=== PATIENT | female | born 1955 | race Caucasian/White ===

== ENCOUNTER 2023-09-22 15:31 | Emergency (ER) | payer MEDICARE, SELFPAY ==
--- NOTE | ~2023-09-22 | XR_ITS ---
EXAM: XR knee LT 3V DATE: 09/22/2023 16:11 HISTORY: left knee pain . COMPARISON: None available. FINDINGS: Decreased mineralization. No fracture or dislocation. No lytic or blastic lesion. Moderate medial joint space narrowing. Moderate tricompartmental osteophytosis. Small volume knee joint fluid . Quadriceps enthesopathy. No erosion or periosteal change. Soft tissues within normal limits. IMPRESSION: No acute osseous finding in the left knee. Reviewed, dictated and finalized at location K.
--- NOTE | 2023-09-22 15:33 | ED.LOWEXIN ---
HPI - Extremity Injury (Lower) General Chief Complaint: Extremity Injury, Lower Stated Complaint: Left Knee Pain Source: patient and RN notes reviewed Mode of arrival: ambulatory Limitations: no limitations History of Present Illness HPI Narrative: Patient is a 68-year-old female who presents to the [facility] with complaints of left knee pain. Patient states that initially she injured the knee last Friday. She states that she wrapped her leg around the table leg, causing a pull in the left knee. Patient states that initially she had some slight discomfort that worsened over the next few hours. She states that that pain continued and worsened with movement and ambulation. She states that she is able to bear weight on the toe but not on the entire foot. She also feels is stiffness in the knee that happens periodically. Patient states that she injured the knee again yesterday while walking, she felt and heard a pop in the posterior knee. She reports worsening pain since that incident. Sensation is intact and she denies numbness. She is neurovascularly intact distally. Related Data Home Medications Medication Instructions Recorded Confirmed atorvastatin 20 mg tablet 20 mg PO DAILY 09/22/23 09/22/23 Review of Systems Review of Systems: CONSTITUTIONAL: Denies fever, chills, or sweats. EYES: Denies visual changes, redness, or discharge. ENT: Denies otalgia and sore throat CARDIOVASCULAR: Denies chest pain, palpitations, or edema. RESPIRATORY: Denies cough or dyspnea. GASTROINTESTINAL: Denies abdominal pain, nausea, vomiting, or diarrhea. GENITOURINARY: Denies dysuria or hematuria. SKIN: Denies rash or itching. MUSCULOSKELETAL: Denies back pain or myalgia. Left knee pain. NEUROLOGIC: Denies headache, numbness, or weakness. Pertinent positives per HPI. PMFSH Comments At the time of my signature, I reviewed and agree with the nursing past medical, surgical, social, and family history. There is no relevant family history pertinent to the patient complaint. Exam Narrative: GENERAL: This is a well-nourished, well-developed patient, in no apparent distress. HEAD: normocephalic, atraumatic. EYES: PERRL. Sclera clear/white. Vision is grossly intact. EARS: External ears normal, auditory canals clear and without drainage, TMs normal without perforation. Hearing grossly intact. NOSE: External nose normal with no obvious nasal discharge, nares without redness, no rhinorrhea. THROAT: Mucous membranes moist, posterior pharynx clear. NECK: Neck supple, non-tender without lymphadenopathy, masses or thyromegaly. CARDIOVASCULAR: Regular rate and rhythm without murmurs, gallops, or rubs. RESPIRATORY: Clear to auscultation. Breath sounds equal bilaterally. No wheezes, rales, or rhonchi. GASTROINTESTINAL: Abdomen soft, non-tender, nondistended. Bowel sounds are active. No hepato-splenomegaly, or palpable masses. No guarding. SKIN: warm, intact with no suspicious lesions or rash, good texture and turgor. NEURO: awake, alert, and oriented to person, place and time. There were no obvious focal neurologic abnormalities. EXTREMITIES: No clubbing, cyanosis, or edema. Patient is able to bear weight but has pain. No surface of trauma or obvious effusion. No overlying erythema or warmth. The L knee is with/without obvious asymmetry or deformity when comparing to the R. Distal motor and neurovascular status intact. BACK: Nontender without deformity or crepitance. No flank tenderness. Course Course Level of Care: Express Care Visit Vital Signs Vital signs: Vital Signs Temperature 98.6 F 09/22/23 15:45 Pulse Rate 90 09/22/23 15:45 Respiratory Rate 16 09/22/23 15:45 Blood Pressure 141/84 H 09/22/23 15:45 Pulse Oximetry 99 09/22/23 15:45 Oxygen Delivery Room Air 09/22/23 15:45 Temperature 98.6 F 09/22/23 15:45 Pulse Rate 90 09/22/23 15:45 Respiratory Rate 16 09/22/23 15:45 Blood Pressure 141/84 H 09/22/23
[2023-09-22 15:45] VITALS: BP 141/84; PULSE 90; RESP 16; TEMP 37; O2SAT 99
== END 2023-09-22 16:28 | disposition home or self-care (01) ==
PROVIDERS: Emergency Provider Nurse Practitioner
DX: S83.92XA Sprain of unspecified site of left knee, initial encounter (principal); T14.90XA Injury, unspecified, initial encounter
CPT/HCPCS: 73562; 99213; G0463; L1830

== ENCOUNTER 2023-10-22 10:15 | Outpatient (RCR) | payer MEDICARE, SELFPAY ==
--- NOTE | 2023-09-29 13:37 | OPREHPOC ---
Outpatient Therapy Plan of Care This is a Multidisciplinary Plan of Care that may contain components documented by all disciplines (PT, OT, and ST.) PT Problem 1 PT Problem #1 Knowledge Deficit PT Goal 1 Goal [place] with HEP Target Visit 4 PT Goal 2 Goal Patient will demonstrate no palpable tenderness to left distal quad or with patellar mobilization Target Visit 4 PT Problem 2 PT Problem #2 Impaired Gait PT Goal 1 Goal Ambulate with even stride length bilaterally Target Visit 8 PT Problem 3 PT Problem #3 Impaired Range of Motion PT Goal 1 Goal Achieve 120 degrees of left knee flexion for functional ADL return Target Visit 8 PT Goal 2 Goal Demonstrate 10 degrees of left ankle dorsiflexion to help achieve terminal stance of gait pattern Target Visit 8
--- NOTE | 2023-09-29 13:37 | PTOPEVAL1 ---
Assessment and note entered by Alfredito Geller, PT Evaluation Information Assessment Status Evaluation Diagnosis Primary OA of Left Knee Onset 09/21/23 Subjective Information Patient reports that she went to ER after feeling a twist and pop in her knee that made it difficult for her to walk and bear weight approximately 1 week ago. Enters clinic today with quad cane and states that she has been limping but able to walk. Patient reports that she had cortisone injection with she feels may have started helping. Feels she is getting better daily. Still feels a limp and uncomfortable with walking any sort of distance or squatting. Reported Pain Level Pain Score 0: Self Report Assessment PT Clinical Summary Patient presents with signs and symptoms consistent with knee arthritis including pain with activity, soft tissue tenderness, and gait/ROM deviations from norm. Patient appears to be on track for healing but is hindered by inflammation, pain, and altered gait cycle limiting functional activity. She will benefit from skilled therapy to address these deficits and return to activity as normal for gross performance of walking and ADLs. Plan of Care Interventions Electrical Stimulation,Gait Training,Hot Pack/Cold Pack,Manual Therapy,Neuro Re-education, Therapeutic Activities,Therapeutic Exercise PT Services Indicated Yes Treatment Frequency and 2x/week for 8 visits Duration These treatments will address the objective and functional deficits as defined above. The patient will be advanced safely and appropriately in order for the patient to progress towards his/her prior level of function. Additional exercises will be introduced and as well as a comprehensive home exercise program upon discharge, if needed, ?to ensure carryover of functional gains achieved in the clinic. This treatment plan has been reviewed and agreement upon by the patient.
--- NOTE | 2023-10-22 14:14 | PTOPDC ---
Assessment and note entered by Daniela Haddad, PT Discharge Information Assessment Status Discharge Diagnosis Primary OA of Left Knee Onset 09/21/23 Subjective Information Pt reports feeling good since receiving therapy, ambulates today without AD, reports she is now doing stairs and knees does not bother her anymore . Reported Pain Level Pain Score 2: Self Report Assessment PT Clinical Summary Pt demos good progress with therapy, able to perform gait on level surfaces and stairs with a more normalized gait pattern, improved heel strike and control of the LE swing, flexion/extension on the steps is good. States pain is significantly reduced at this time and she is able to ambulate indep without AD. continues to have some tenderness on the medial side of the knee and some limitation to L knee flexion ROM 120 deg (normal: 130deg). She is compliant HEPs and reports she is going to [place] to visit family. Plan of Care PT Services Indicated No
--- NOTE | 2023-10-22 15:34 | PTOPDC ---
Assessment and note entered by Daniela Haddad, PT Evaluation Information Assessment Status Discharge Diagnosis Primary OA of Left Knee Onset 09/21/23 Subjective Information Pt reports feeling good since receiving therapy, ambulates today without AD, reports she is now doing stairs and knees does not bother her anymore . Reported Pain Level Pain Score 2: Self Report Assessment PT Clinical Summary Pt demos good progress with therapy, able to perform gait on level surfaces and stairs with a more normalized gait pattern, improved heel strike and control of the LE swing, flexion/extension on the steps is good. States pain is significantly reduced at this time and she is able to ambulate indep without AD. continues to have some tenderness on the medial side of the knee and some limitation to L knee flexion ROM 120 deg (normal: 130deg). She is compliant HEPs and reports she is going to [place] to visit family. Plan of Care PT Services Indicated No
== END 2023-10-23 08:45 | disposition home or self-care (01) ==
LOC: ANHPT 10:15
PROVIDERS: Visit Provider Orthopaedic Surgery
DX: M17.12 Unilateral primary osteoarthritis, left knee (principal)
CPT/HCPCS: 97110; 97116; 97140; 97161; 97530